=== PATIENT | male | born 1950 | race Hispanic/Latino ===

== ENCOUNTER 2019-01-21 13:55 | Inpatient (IN) | payer MEDICARE ==
[2019-01-21] MEDS ORDERED: Dextrose 50% Abboject 50 ML SYRINGE IVP PRN (18:45)
[2019-01-21] MEDS ORDERED: HumaLOG 300 UNITS/3 ML VIAL SC PRN ×2 (18:45)
[2019-01-21] MEDS ORDERED: Dextrose 5% in Water 1,000 ML IV PRN (18:45)
[2019-01-21] MEDS ORDERED: Cyclobenzaprine 10 MG TAB PO PRN (18:46)
[2019-01-21] MEDS ORDERED: Enoxaparin Sodium 30 MG/0.3 ML SYRINGE SC SCH (21:00)
[2019-01-21] MEDS ORDERED: Senokot S 8.6-50 MG TAB PO SCH (21:00)
[2019-01-21] MEDS ORDERED: Gabapentin 100 MG CAP PO SCH (21:00)
[2019-01-21] MEDS ORDERED: Ascorbic Acid 500 mg Chewable Tablet PO SCH (21:00)
[2019-01-21] MEDS ORDERED: Acetaminophen 500 MG TAB PO SCH (23:59)
[2019-01-21] MEDS ORDERED: cloNIDine 0.1 MG TAB PO SCH (23:59)
[2019-01-21] MEDS ORDERED: traMADol HCl 50 MG TAB PO SCH (23:59)
[2019-01-22] MEDS ORDERED: Sodium Chloride 0.9% 20 ML ONE (02:31)
[2019-01-22] MEDS ORDERED: Ferrous Sulfate 325 MG TAB PO SCH (08:00)
[2019-01-22] MEDS ORDERED: Tamsulosin HCl 0.4 MG CAP PO SCH (09:00)
[2019-01-22] MEDS ORDERED: Polyethylene Glycol 3350 17 GM Packet PO SCH (09:00)
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
[2019-01-23] MEDS: Acetaminophen 500 MG TAB PO SCH ×3 (05:41→17:46)
[2019-01-23] MEDS: traMADol HCl 50 MG TAB PO SCH ×3 (05:42→17:47)
[2019-01-23] MEDS: cloNIDine 0.1 MG TAB PO SCH ×3 (05:42→17:46)
[2019-01-23 05:47] LABS: #Basophils 0.1 thou/uL (0.0-0.2); #Neutrophils 10.3 thou/uL (1.40-6.50); %Basophils 0.5 % (0.0-1.0); %Eosinophils 0.4 % (0.0-10.0); %Monocytes 8.2 % (0.0-10.0); %Neutrophils 82.8 % (42.0-75.0); Hemoglobin 8.3 g/dL (14.0-18.0); Mean Corpuscular HGB CONC 31.7 g/dL (32.0-36.0); Mean Corpuscular Hemoglobin 29.1 pg (27.0-31.0); Mean Corpuscular Volume 91.6 fL (78.0-98.0); Mean Platelet Volume 5.6 fL (7.4-10.4); Platelet Count 523 thou/uL (130-400); RBC Distribution Width 13.8 % (11.5-14.5); Red Blood Cell (RBC) Count 2.84 mill/uL (4.70-6.10); White Blood Cell (WBC) Count 12.4 thou/uL (4.8-10.8)
[2019-01-23 06:00] LABS: Anion Gap 16 mmol/L (10-20); BUN (Urea Nitrogen) 16 mg/dL (8.4-25.7); Calc. Creatinine Clearance 78 mL/min (70-130); Carbon Dioxide 22 mmol/L (23-31); Chloride 101 mmol/L (98-107); Estimated GFR-MDRD 63; Glucose 163 mg/dL (80-115); Potassium 4.2 mmol/L (3.5-5.1); Sodium 135 mmol/L (136-145)
[2019-01-23] MEDS: Enoxaparin Sodium 30 MG/0.3 ML SYRINGE SC SCH ×2 (08:10→20:56)
[2019-01-23] MEDS: Gabapentin 100 MG CAP PO SCH ×3 (08:11→20:57)
[2019-01-23] MEDS: Senokot S 8.6-50 MG TAB PO SCH ×2 (08:11→20:57)
[2019-01-23] MEDS: Ferrous Sulfate 325 MG TAB PO SCH ×2 (08:11→16:47)
[2019-01-23] MEDS: Ascorbic Acid 500 mg Chewable Tablet PO SCH ×2 (08:12→20:57)
[2019-01-23] MEDS: Tamsulosin HCl 0.4 MG CAP PO SCH (08:12)
[2019-01-23] MEDS: Prevnar 13-Val Conj/PF 0.5 ML SYRINGE IM ONE (19:26)
[2019-01-23] MEDS: Cyclobenzaprine 10 MG TAB PO PRN (20:57)
[2019-01-24] MEDS: cloNIDine 0.1 MG TAB PO SCH ×4 (00:57→17:55)
[2019-01-24] MEDS: Acetaminophen 500 MG TAB PO SCH ×4 (00:57→17:55)
[2019-01-24] MEDS: traMADol HCl 50 MG TAB PO SCH ×4 (00:57→17:55)
[2019-01-24] MEDS: Enoxaparin Sodium 30 MG/0.3 ML SYRINGE SC SCH ×2 (08:44→20:25)
[2019-01-24] MEDS: Tamsulosin HCl 0.4 MG CAP PO SCH (08:45)
[2019-01-24] MEDS: Ferrous Sulfate 325 MG TAB PO SCH ×2 (08:45→17:54)
[2019-01-24] MEDS: Gabapentin 100 MG CAP PO SCH ×3 (08:45→20:25)
[2019-01-24] MEDS: Ascorbic Acid 500 mg Chewable Tablet PO SCH ×2 (08:45→20:25)
[2019-01-24] MEDS: Senokot S 8.6-50 MG TAB PO SCH ×2 (08:45→20:25)
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
[2019-01-24] MEDS: metFORMIN 500 MG TAB PO SCH (17:55)
[2019-01-24] MEDS: Lisinopril 5 MG TAB PO SCH (20:25)
[2019-01-25] MEDS: Acetaminophen 500 MG TAB PO SCH ×4 (01:04→18:00)
[2019-01-25] MEDS: cloNIDine 0.1 MG TAB PO SCH ×4 (01:04→18:01)
[2019-01-25] MEDS: traMADol HCl 50 MG TAB PO SCH ×4 (01:05→18:01)
[2019-01-25] MEDS: Tamsulosin HCl 0.4 MG CAP PO SCH (08:31)
[2019-01-25] MEDS: Ascorbic Acid 500 mg Chewable Tablet PO SCH ×2 (08:31→20:40)
[2019-01-25] MEDS: metFORMIN 500 MG TAB PO SCH ×2 (08:31→18:00)
[2019-01-25] MEDS: Ferrous Sulfate 325 MG TAB PO SCH ×2 (08:31→18:01)
[2019-01-25] MEDS: Lisinopril 5 MG TAB PO SCH ×2 (08:32→20:40)
[2019-01-25] MEDS: Gabapentin 100 MG CAP PO SCH ×3 (08:33→20:40)
[2019-01-25] MEDS: Enoxaparin Sodium 30 MG/0.3 ML SYRINGE SC SCH ×2 (08:33→20:40)
[2019-01-25] MEDS: Senokot S 8.6-50 MG TAB PO SCH ×2 (10:51→20:39)
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
[2019-01-25 20:19] LABS: Anion Gap 14 mmol/L (10-20); Calcium 8.5 mg/dL (7.8-10.44); Carbon Dioxide 23 mmol/L (23-31); Chloride 100 mmol/L (98-107); Glucose 199 mg/dL (80-115); Potassium 4.3 mmol/L (3.5-5.1); Sodium 133 mmol/L (136-145)
[2019-01-25] MEDS: Cyclobenzaprine 10 MG TAB PO PRN (20:39)
[2019-01-25 20:42] LABS: BUN (Urea Nitrogen) 29 mg/dL (8.4-25.7); Calc. Creatinine Clearance 53 mL/min (70-130); Estimated GFR-MDRD 40
[2019-01-26] MEDS: Acetaminophen 500 MG TAB PO SCH ×4 (01:13→17:57)
[2019-01-26] MEDS: traMADol HCl 50 MG TAB PO SCH ×4 (01:14→17:56)
[2019-01-26] MEDS: cloNIDine 0.1 MG TAB PO SCH ×5 (01:15→17:57)
[2019-01-26 05:39] LABS: #Basophils 0.1 thou/uL (0.0-0.2); #Eosinphils 0.2 thou/uL (0.0-0.7); #Lymphocytes 1.1 thou/uL (1.20-3.40); #Monocytes 0.7 thou/uL (0.11-0.59); #Neutrophils 4.6 thou/uL (1.40-6.50); %Eosinophils 2.7 % (0.0-10.0); %Lymphocytes 16.6 % (21.0-51.0); %Monocytes 10.7 % (0.0-10.0); Hemoglobin 8.1 g/dL (14.0-18.0); Mean Corpuscular HGB CONC 31.8 g/dL (32.0-36.0); Mean Corpuscular Hemoglobin 29.7 pg (27.0-31.0); Mean Corpuscular Volume 93.4 fL (78.0-98.0); Mean Platelet Volume 5.7 fL (7.4-10.4); Platelet Count 391 thou/uL (130-400); RBC Distribution Width 14.1 % (11.5-14.5); Red Blood Cell (RBC) Count 2.73 mill/uL (4.70-6.10); White Blood Cell (WBC) Count 6.7 thou/uL (4.8-10.8)
[2019-01-26] MEDS: Ferrous Sulfate 325 MG TAB PO SCH ×2 (08:56→16:27)
[2019-01-26] MEDS: Ascorbic Acid 500 mg Chewable Tablet PO SCH ×2 (08:57→20:20)
[2019-01-26] MEDS: Gabapentin 100 MG CAP PO SCH ×3 (08:57→20:20)
[2019-01-26] MEDS: metFORMIN 500 MG TAB PO SCH ×2 (08:57→16:27)
[2019-01-26] MEDS: Enoxaparin Sodium 30 MG/0.3 ML SYRINGE SC SCH ×2 (08:57→20:20)
[2019-01-26] MEDS: Senokot S 8.6-50 MG TAB PO SCH ×2 (08:58→20:20)
[2019-01-26] MEDS: Lisinopril 5 MG TAB PO SCH ×2 (08:58→20:20)
[2019-01-26] MEDS: Tamsulosin HCl 0.4 MG CAP PO SCH (08:58)
[2019-01-26] MEDS: Cyclobenzaprine 10 MG TAB PO PRN (11:49)
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
[2019-01-26] MEDS: Glimepiride 2 MG TAB PO SCH (16:27)
[2019-01-26] MEDS ORDERED: Glimepiride 2 MG TAB PO SCH (21:00)
[2019-01-27] MEDS: traMADol HCl 50 MG TAB PO SCH ×4 (00:15→17:43)
[2019-01-27] MEDS: Acetaminophen 500 MG TAB PO SCH ×4 (00:16→17:40)
[2019-01-27] MEDS: cloNIDine 0.1 MG TAB PO SCH ×4 (00:16→17:40)
[2019-01-27] MEDS: Glimepiride 2 MG TAB PO SCH ×2 (08:32→17:40)
[2019-01-27] MEDS: Ferrous Sulfate 325 MG TAB PO SCH ×2 (08:32→17:40)
[2019-01-27] MEDS: metFORMIN 500 MG TAB PO SCH ×2 (08:33→17:40)
[2019-01-27] MEDS: Enoxaparin Sodium 30 MG/0.3 ML SYRINGE SC SCH (08:33)
[2019-01-27] MEDS: Ascorbic Acid 500 mg Chewable Tablet PO SCH ×2 (08:33→20:39)
[2019-01-27] MEDS: Gabapentin 100 MG CAP PO SCH ×3 (08:34→20:39)
[2019-01-27] MEDS: Senokot S 8.6-50 MG TAB PO SCH ×2 (08:34→20:38)
[2019-01-27] MEDS: Tamsulosin HCl 0.4 MG CAP PO SCH (08:34)
[2019-01-27] MEDS: Lisinopril 5 MG TAB PO SCH ×2 (08:35→20:39)
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
[2019-01-27] MEDS: Cyclobenzaprine 10 MG TAB PO PRN (20:39)
[2019-01-28] MEDS: Acetaminophen 500 MG TAB PO SCH ×4 (00:30→18:06)
[2019-01-28] MEDS: traMADol HCl 50 MG TAB PO SCH ×4 (00:30→18:07)
[2019-01-28] MEDS: cloNIDine 0.1 MG TAB PO SCH ×4 (00:30→18:07)
[2019-01-28] MEDS: Glimepiride 2 MG TAB PO SCH ×2 (08:40→18:06)
[2019-01-28] MEDS: Ferrous Sulfate 325 MG TAB PO SCH ×2 (08:41→18:06)
[2019-01-28] MEDS: Ascorbic Acid 500 mg Chewable Tablet PO SCH ×2 (08:41→20:05)
[2019-01-28] MEDS: Gabapentin 100 MG CAP PO SCH ×3 (08:42→20:05)
[2019-01-28] MEDS: Senokot S 8.6-50 MG TAB PO SCH ×2 (08:42→20:05)
[2019-01-28] MEDS: Lisinopril 5 MG TAB PO SCH ×2 (08:42→20:05)
[2019-01-28] MEDS: Enoxaparin Sodium 40 MG/0.4 ML SYRINGE SC SCH (08:43)
[2019-01-28] MEDS: metFORMIN 500 MG TAB PO SCH ×2 (08:43→18:12)
[2019-01-28] MEDS: Tamsulosin HCl 0.4 MG CAP PO SCH (08:56)
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
--- NOTE | 2019-01-28 13:55 | RAD ---
XR Foot Lt 3 View STANDARD History: Foot pain Comparison: None. Findings: Extensive soft tissue swelling and mild vascular calcifications. Appears be a ulcer project ing over the distal phalanx great toe. Mild vascular calcifications. No acute fracture or malalignment. Lisfranc interval is maintained. Moderate midfoot degenerative changes. Large plantar calcaneal spur. Impression: Chronic findings. No acute osseous abnormality.
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
[2019-01-29] MEDS: traMADol HCl 50 MG TAB PO SCH ×4 (00:18→17:14)
[2019-01-29] MEDS: Acetaminophen 500 MG TAB PO SCH ×4 (00:19→17:14)
[2019-01-29] MEDS: cloNIDine 0.1 MG TAB PO SCH ×4 (05:22→17:16)
[2019-01-29 05:34] LABS: #Basophils 0.1 thou/uL (0.0-0.2); #Eosinphils 0.1 thou/uL (0.0-0.7); #Lymphocytes 1.5 thou/uL (1.20-3.40); #Neutrophils 6.7 thou/uL (1.40-6.50); %Basophils 0.5 % (0.0-1.0); %Eosinophils 0.9 % (0.0-10.0); %Lymphocytes 16.3 % (21.0-51.0); %Monocytes 10.5 % (0.0-10.0); %Neutrophils 71.8 % (42.0-75.0); Hemoglobin 8.1 g/dL (14.0-18.0); Mean Corpuscular HGB CONC 32.4 g/dL (32.0-36.0); Mean Corpuscular Hemoglobin 29.3 pg (27.0-31.0); Mean Corpuscular Volume 90.5 fL (78.0-98.0); Mean Platelet Volume 5.8 fL (7.4-10.4); Platelet Count 434 thou/uL (130-400); RBC Distribution Width 13.5 % (11.5-14.5); Red Blood Cell (RBC) Count 2.77 mill/uL (4.70-6.10); White Blood Cell (WBC) Count 9.3 thou/uL (4.8-10.8)
[2019-01-29 05:46] LABS: Anion Gap 14 mmol/L (10-20); BUN (Urea Nitrogen) 26 mg/dL (8.4-25.7); Calc. Creatinine Clearance 77 mL/min (70-130); Calcium 8.9 mg/dL (7.8-10.44); Carbon Dioxide 23 mmol/L (23-31); Chloride 101 mmol/L (98-107); Estimated GFR-MDRD 62; Potassium 4.4 mmol/L (3.5-5.1); Sodium 134 mmol/L (136-145)
[2019-01-29 05:48] LABS: Glucose 35 mg/dL (80-115)
[2019-01-29] MEDS ORDERED: Dextrose 5% in Water 1,000 ML IV PRN (06:29)
[2019-01-29] MEDS ORDERED: Dextrose 50% Abboject 50 ML SYRINGE IVP PRN (06:29)
[2019-01-29] MEDS: Gabapentin 100 MG CAP PO SCH ×3 (09:21→21:17)
[2019-01-29] MEDS: Lisinopril 5 MG TAB PO SCH ×2 (09:21→21:17)
[2019-01-29] MEDS: Senokot S 8.6-50 MG TAB PO SCH ×2 (09:21→21:17)
[2019-01-29] MEDS: Ferrous Sulfate 325 MG TAB PO SCH ×2 (09:21→17:14)
[2019-01-29] MEDS: metFORMIN 500 MG TAB PO SCH ×2 (09:21→17:15)
[2019-01-29] MEDS: Tamsulosin HCl 0.4 MG CAP PO SCH (09:21)
[2019-01-29] MEDS: Ascorbic Acid 500 mg Chewable Tablet PO SCH ×2 (09:22→21:17)
[2019-01-29] MEDS: Enoxaparin Sodium 40 MG/0.4 ML SYRINGE SC SCH (09:23)
[2019-01-30] MEDS: Acetaminophen 500 MG TAB PO SCH ×4 (00:18→17:57)
[2019-01-30] MEDS: traMADol HCl 50 MG TAB PO SCH ×4 (00:18→17:57)
[2019-01-30] MEDS: cloNIDine 0.1 MG TAB PO SCH ×4 (00:18→17:57)
[2019-01-30] MEDS: Enoxaparin Sodium 40 MG/0.4 ML SYRINGE SC SCH (08:35)
[2019-01-30] MEDS: metFORMIN 500 MG TAB PO SCH ×2 (08:36→15:50)
[2019-01-30] MEDS: Tamsulosin HCl 0.4 MG CAP PO SCH (08:36)
[2019-01-30] MEDS: Ascorbic Acid 500 mg Chewable Tablet PO SCH ×2 (08:36→21:10)
[2019-01-30] MEDS: Senokot S 8.6-50 MG TAB PO SCH ×2 (08:36→21:10)
[2019-01-30] MEDS: Ferrous Sulfate 325 MG TAB PO SCH ×2 (08:36→15:49)
[2019-01-30] MEDS: Lisinopril 5 MG TAB PO SCH ×2 (08:37→21:09)
[2019-01-30] MEDS: Gabapentin 100 MG CAP PO SCH ×3 (08:37→21:09)
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
[2019-01-30] MEDS: Citalopram 10 MG TAB PO SCH (21:09)
[2019-01-31] MEDS: Acetaminophen 500 MG TAB PO SCH ×4 (00:24→16:42)
[2019-01-31] MEDS: traMADol HCl 50 MG TAB PO SCH ×4 (00:25→16:42)
[2019-01-31] MEDS: cloNIDine 0.1 MG TAB PO SCH ×4 (00:25→16:44)
[2019-01-31] MEDS: Senokot S 8.6-50 MG TAB PO SCH ×2 (08:38→20:42)
[2019-01-31] MEDS: Ferrous Sulfate 325 MG TAB PO SCH ×2 (08:39→16:41)
[2019-01-31] MEDS: metFORMIN 500 MG TAB PO SCH ×2 (08:39→16:41)
[2019-01-31] MEDS: Tamsulosin HCl 0.4 MG CAP PO SCH (08:39)
[2019-01-31] MEDS: Gabapentin 100 MG CAP PO SCH ×3 (08:39→20:42)
[2019-01-31] MEDS: Ascorbic Acid 500 mg Chewable Tablet PO SCH ×2 (08:39→20:42)
[2019-01-31] MEDS: Enoxaparin Sodium 40 MG/0.4 ML SYRINGE SC SCH (08:39)
[2019-01-31] MEDS: Lisinopril 5 MG TAB PO SCH ×2 (08:40→20:42)
[2019-01-31] MEDS: Citalopram 10 MG TAB PO SCH (20:42)
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
[2019-02-01] MEDS: cloNIDine 0.1 MG TAB PO SCH ×4 (00:48→17:41)
[2019-02-01] MEDS: traMADol HCl 50 MG TAB PO SCH ×4 (00:48→17:41)
[2019-02-01] MEDS: Acetaminophen 500 MG TAB PO SCH ×4 (00:48→17:40)
[2019-02-01] MEDS: Ferrous Sulfate 325 MG TAB PO SCH ×2 (08:55→16:11)
[2019-02-01] MEDS: metFORMIN 500 MG TAB PO SCH ×2 (08:59→16:12)
[2019-02-01] MEDS: Enoxaparin Sodium 40 MG/0.4 ML SYRINGE SC SCH (09:07)
[2019-02-01] MEDS: Senokot S 8.6-50 MG TAB PO SCH ×2 (09:09→21:25)
[2019-02-01] MEDS: Tamsulosin HCl 0.4 MG CAP PO SCH (09:09)
[2019-02-01] MEDS: Gabapentin 100 MG CAP PO SCH ×3 (09:10→21:24)
[2019-02-01] MEDS: Lisinopril 5 MG TAB PO SCH ×2 (09:10→21:25)
[2019-02-01] MEDS: Ascorbic Acid 500 mg Chewable Tablet PO SCH ×2 (09:55→21:24)
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
[2019-02-01] MEDS: Citalopram 10 MG TAB PO SCH (21:24)
[2019-02-01] MEDS: Cyclobenzaprine 10 MG TAB PO PRN (21:24)
[2019-02-02] MEDS: cloNIDine 0.1 MG TAB PO SCH ×4 (00:45→17:51)
[2019-02-02] MEDS: Acetaminophen 500 MG TAB PO SCH ×4 (00:45→17:48)
[2019-02-02] MEDS: traMADol HCl 50 MG TAB PO SCH ×4 (00:45→17:49)
[2019-02-02] MEDS: metFORMIN 500 MG TAB PO SCH ×2 (08:40→17:48)
[2019-02-02] MEDS: Ferrous Sulfate 325 MG TAB PO SCH ×2 (08:55→17:49)
[2019-02-02] MEDS: Senokot S 8.6-50 MG TAB PO SCH ×2 (09:00→20:36)
[2019-02-02] MEDS: Cyclobenzaprine 10 MG TAB PO PRN (09:22)
[2019-02-02] MEDS: Enoxaparin Sodium 40 MG/0.4 ML SYRINGE SC SCH (09:23)
[2019-02-02] MEDS: Tamsulosin HCl 0.4 MG CAP PO SCH (09:24)
[2019-02-02] MEDS: Gabapentin 100 MG CAP PO SCH ×3 (09:24→20:35)
[2019-02-02] MEDS: Lisinopril 5 MG TAB PO SCH ×2 (09:25→20:35)
[2019-02-02] MEDS: Ascorbic Acid 500 mg Chewable Tablet PO SCH ×2 (09:25→21:01)
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
[2019-02-02] MEDS: Citalopram 10 MG TAB PO SCH (20:35)
[2019-02-03] MEDS: Acetaminophen 500 MG TAB PO SCH ×4 (00:48→17:38)
[2019-02-03] MEDS: cloNIDine 0.1 MG TAB PO SCH ×4 (00:48→17:40)
[2019-02-03] MEDS: traMADol HCl 50 MG TAB PO SCH ×4 (00:49→17:37)
[2019-02-03] MEDS: Ferrous Sulfate 325 MG TAB PO SCH ×2 (08:19→17:38)
[2019-02-03] MEDS: metFORMIN 500 MG TAB PO SCH ×2 (08:19→17:38)
[2019-02-03] MEDS: Tamsulosin HCl 0.4 MG CAP PO SCH (08:19)
[2019-02-03] MEDS: Lisinopril 5 MG TAB PO SCH ×2 (08:19→20:56)
[2019-02-03] MEDS: Ascorbic Acid 500 mg Chewable Tablet PO SCH ×2 (08:19→20:56)
[2019-02-03] MEDS: Gabapentin 100 MG CAP PO SCH ×3 (08:19→20:56)
[2019-02-03] MEDS: Senokot S 8.6-50 MG TAB PO SCH ×2 (08:19→20:56)
[2019-02-03] MEDS: Enoxaparin Sodium 40 MG/0.4 ML SYRINGE SC SCH (08:20)
[2019-02-03] MEDS ORDERED: Furosemide 40 MG TAB PO SCH (12:45)
[2019-02-03] MEDS ORDERED: Potassium Chloride 20 MEQ TAB PO SCH (13:00)
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
[2019-02-03] MEDS: Citalopram 10 MG TAB PO SCH (20:56)
[2019-02-04] MEDS: traMADol HCl 50 MG TAB PO SCH ×5 (00:20→23:41)
[2019-02-04] MEDS: Acetaminophen 500 MG TAB PO SCH ×5 (00:20→23:40)
[2019-02-04] MEDS: cloNIDine 0.1 MG TAB PO SCH ×5 (00:21→23:41)
[2019-02-04 05:42] LABS: #Eosinphils 0.2 thou/uL (0.0-0.7); #Lymphocytes 1.2 thou/uL (1.20-3.40); #Monocytes 0.8 thou/uL (0.11-0.59); #Neutrophils 4.9 thou/uL (1.40-6.50); %Basophils 0.6 % (0.0-1.0); %Eosinophils 2.5 % (0.0-10.0); %Lymphocytes 16.9 % (21.0-51.0); %Monocytes 11.2 % (0.0-10.0); %Neutrophils 68.9 % (42.0-75.0); Hemoglobin 8.1 g/dL (14.0-18.0); Mean Corpuscular Hemoglobin 28.3 pg (27.0-31.0); Mean Corpuscular Volume 88.5 fL (78.0-98.0); Mean Platelet Volume 5.8 fL (7.4-10.4); Platelet Count 449 thou/uL (130-400); RBC Distribution Width 12.5 % (11.5-14.5); Red Blood Cell (RBC) Count 2.86 mill/uL (4.70-6.10); White Blood Cell (WBC) Count 7.1 thou/uL (4.8-10.8)
[2019-02-04 05:59] LABS: Anion Gap 13 mmol/L (10-20); BUN (Urea Nitrogen) 26 mg/dL (8.4-25.7); Calc. Creatinine Clearance 71 mL/min (70-130); Calcium 9.4 mg/dL (7.8-10.44); Carbon Dioxide 24 mmol/L (23-31); Chloride 99 mmol/L (98-107); Estimated GFR-MDRD 57; Glucose 188 mg/dL (80-115); Potassium 4.6 mmol/L (3.5-5.1); Sodium 131 mmol/L (136-145)
[2019-02-04] MEDS: Enoxaparin Sodium 40 MG/0.4 ML SYRINGE SC SCH (08:11)
[2019-02-04] MEDS: Ferrous Sulfate 325 MG TAB PO SCH ×2 (08:12→17:02)
[2019-02-04] MEDS: Tamsulosin HCl 0.4 MG CAP PO SCH (08:12)
[2019-02-04] MEDS: Gabapentin 100 MG CAP PO SCH ×3 (08:12→21:31)
[2019-02-04] MEDS: Lisinopril 5 MG TAB PO SCH ×2 (08:12→21:31)
[2019-02-04] MEDS: metFORMIN 500 MG TAB PO SCH ×2 (08:12→17:02)
[2019-02-04] MEDS: Ascorbic Acid 500 mg Chewable Tablet PO SCH ×2 (08:12→21:31)
[2019-02-04] MEDS: Senokot S 8.6-50 MG TAB PO SCH ×2 (08:12→21:31)
[2019-02-04] MEDS: Cyclobenzaprine 10 MG TAB PO PRN (11:30)
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
[2019-02-04] MEDS: Citalopram 10 MG TAB PO SCH (21:31)
[2019-02-05] MEDS: traMADol HCl 50 MG TAB PO SCH ×4 (05:06→23:02)
[2019-02-05] MEDS: Acetaminophen 500 MG TAB PO SCH ×4 (05:06→23:03)
[2019-02-05] MEDS: cloNIDine 0.1 MG TAB PO SCH ×4 (05:07→23:03)
[2019-02-05] MEDS: Prevnar 13-Val Conj/PF 0.5 ML SYRINGE IM ONE (05:39)
[2019-02-05] MEDS: Tamsulosin HCl 0.4 MG CAP PO SCH (08:37)
[2019-02-05] MEDS: metFORMIN 500 MG TAB PO SCH ×2 (08:37→17:41)
[2019-02-05] MEDS: Gabapentin 100 MG CAP PO SCH ×3 (08:37→20:15)
[2019-02-05] MEDS: Ferrous Sulfate 325 MG TAB PO SCH ×2 (08:37→17:36)
[2019-02-05] MEDS: Ascorbic Acid 500 mg Chewable Tablet PO SCH ×2 (08:37→20:16)
[2019-02-05] MEDS: Senokot S 8.6-50 MG TAB PO SCH ×2 (08:37→20:15)
[2019-02-05] MEDS: Lisinopril 5 MG TAB PO SCH ×2 (08:38→20:16)
[2019-02-05] MEDS: Enoxaparin Sodium 40 MG/0.4 ML SYRINGE SC SCH (08:38)
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
[2019-02-05] MEDS: Citalopram 10 MG TAB PO SCH (20:16)
[2019-02-06] MEDS: traMADol HCl 50 MG TAB PO SCH ×4 (05:32→23:32)
[2019-02-06] MEDS: Acetaminophen 500 MG TAB PO SCH ×4 (05:32→23:32)
[2019-02-06] MEDS: cloNIDine 0.1 MG TAB PO SCH ×4 (05:32→23:32)
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
[2019-02-06] MEDS: Ascorbic Acid 500 mg Chewable Tablet PO SCH ×2 (09:39→20:33)
[2019-02-06] MEDS: Ferrous Sulfate 325 MG TAB PO SCH ×2 (09:39→17:42)
[2019-02-06] MEDS: Tamsulosin HCl 0.4 MG CAP PO SCH (09:40)
[2019-02-06] MEDS: Gabapentin 100 MG CAP PO SCH ×3 (09:40→20:33)
[2019-02-06] MEDS: Senokot S 8.6-50 MG TAB PO SCH ×2 (09:40→20:33)
[2019-02-06] MEDS: metFORMIN 500 MG TAB PO SCH ×2 (09:40→17:42)
[2019-02-06] MEDS: Enoxaparin Sodium 40 MG/0.4 ML SYRINGE SC SCH (09:41)
[2019-02-06] MEDS: Lisinopril 5 MG TAB PO SCH ×2 (09:41→20:33)
[2019-02-06] MEDS ORDERED: Gabapentin 100 MG CAP PO SCH (10:00)
[2019-02-06] MEDS: Citalopram 10 MG TAB PO SCH (20:34)
[2019-02-07] MEDS: Acetaminophen 500 MG TAB PO SCH ×4 (05:25→23:44)
[2019-02-07] MEDS: traMADol HCl 50 MG TAB PO SCH ×4 (05:25→23:44)
[2019-02-07] MEDS: cloNIDine 0.1 MG TAB PO SCH ×4 (05:26→23:45)
[2019-02-07] MEDS: Enoxaparin Sodium 40 MG/0.4 ML SYRINGE SC SCH (09:18)
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
[2019-02-07] MEDS: metFORMIN 500 MG TAB PO SCH ×2 (09:19→17:14)
[2019-02-07] MEDS: Ferrous Sulfate 325 MG TAB PO SCH ×2 (09:19→17:15)
[2019-02-07] MEDS: Lisinopril 5 MG TAB PO SCH ×2 (09:20→20:04)
[2019-02-07] MEDS: Ascorbic Acid 500 mg Chewable Tablet PO SCH ×2 (09:20→20:03)
[2019-02-07] MEDS: Senokot S 8.6-50 MG TAB PO SCH ×2 (09:20→20:05)
[2019-02-07] MEDS: Gabapentin 100 MG CAP PO SCH ×3 (09:21→20:04)
[2019-02-07] MEDS: Tamsulosin HCl 0.4 MG CAP PO SCH (09:21)
[2019-02-07] MEDS: Pioglitazone HCl 15 MG TAB PO SCH (09:21)
[2019-02-07] MEDS: Insulin Regular 300 UNITS/3 ML VIAL SC PRN ×3 (13:45→21:14)
[2019-02-07] MEDS: Citalopram 10 MG TAB PO SCH (20:04)
[2019-02-08] MEDS: Insulin Regular 300 UNITS/3 ML VIAL SC PRN ×4 (06:07→21:27)
[2019-02-08] MEDS: traMADol HCl 50 MG TAB PO SCH ×4 (06:15→23:18)
[2019-02-08] MEDS: cloNIDine 0.1 MG TAB PO SCH ×4 (06:16→23:18)
[2019-02-08] MEDS: Acetaminophen 500 MG TAB PO SCH ×4 (06:16→23:18)
[2019-02-08] MEDS: Ascorbic Acid 500 mg Chewable Tablet PO SCH ×2 (08:21→20:15)
[2019-02-08] MEDS: Ferrous Sulfate 325 MG TAB PO SCH ×2 (08:21→17:31)
[2019-02-08] MEDS: metFORMIN 500 MG TAB PO SCH ×2 (08:21→17:31)
[2019-02-08] MEDS: Senokot S 8.6-50 MG TAB PO SCH ×2 (08:24→20:17)
[2019-02-08] MEDS: Tamsulosin HCl 0.4 MG CAP PO SCH (08:26)
[2019-02-08] MEDS: Pioglitazone HCl 15 MG TAB PO SCH (08:26)
[2019-02-08] MEDS: Lisinopril 5 MG TAB PO SCH ×2 (08:26→20:16)
[2019-02-08] MEDS: Gabapentin 100 MG CAP PO SCH ×3 (08:27→20:16)
[2019-02-08] MEDS: Enoxaparin Sodium 40 MG/0.4 ML SYRINGE SC SCH (08:27)
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
[2019-02-08] MEDS: Citalopram 10 MG TAB PO SCH (20:15)
[2019-02-09] MEDS: Acetaminophen 500 MG TAB PO SCH ×4 (05:27→23:45)
[2019-02-09] MEDS: traMADol HCl 50 MG TAB PO SCH ×4 (05:27→23:45)
[2019-02-09] MEDS: cloNIDine 0.1 MG TAB PO SCH ×4 (05:28→23:46)
[2019-02-09] MEDS: metFORMIN 500 MG TAB PO SCH ×2 (08:49→17:41)
[2019-02-09] MEDS: Gabapentin 100 MG CAP PO SCH ×3 (08:49→20:37)
[2019-02-09] MEDS: Pioglitazone HCl 15 MG TAB PO SCH (08:50)
[2019-02-09] MEDS: Senokot S 8.6-50 MG TAB PO SCH ×2 (08:50→20:38)
[2019-02-09] MEDS: Ferrous Sulfate 325 MG TAB PO SCH ×2 (08:51→17:41)
[2019-02-09] MEDS: Tamsulosin HCl 0.4 MG CAP PO SCH (08:51)
[2019-02-09] MEDS: Lisinopril 5 MG TAB PO SCH ×2 (08:51→20:37)
[2019-02-09] MEDS: Ascorbic Acid 500 mg Chewable Tablet PO SCH ×2 (08:51→20:36)
[2019-02-09] MEDS: Enoxaparin Sodium 40 MG/0.4 ML SYRINGE SC SCH (08:52)
[2019-02-09] MEDS: Cyclobenzaprine 10 MG TAB PO PRN (09:37)
[2019-02-09] MEDS: Insulin Regular 300 UNITS/3 ML VIAL SC PRN ×3 (12:39→22:06)
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
[2019-02-09] MEDS: Citalopram 10 MG TAB PO SCH (20:36)
[2019-02-10] MEDS: traMADol HCl 50 MG TAB PO SCH ×3 (05:12→17:44)
[2019-02-10] MEDS: cloNIDine 0.1 MG TAB PO SCH ×3 (05:12→17:45)
[2019-02-10] MEDS: Acetaminophen 500 MG TAB PO SCH ×3 (05:12→17:43)
[2019-02-10] MEDS: Insulin Regular 300 UNITS/3 ML VIAL SC PRN ×3 (05:46→17:43)
[2019-02-10] MEDS: Gabapentin 100 MG CAP PO SCH ×3 (08:59→21:14)
[2019-02-10] MEDS: Tamsulosin HCl 0.4 MG CAP PO SCH (08:59)
[2019-02-10] MEDS: metFORMIN 500 MG TAB PO SCH ×2 (09:00→17:42)
[2019-02-10] MEDS: Senokot S 8.6-50 MG TAB PO SCH ×2 (09:00→21:15)
[2019-02-10] MEDS: Ascorbic Acid 500 mg Chewable Tablet PO SCH ×2 (09:00→21:15)
[2019-02-10] MEDS: Pioglitazone HCl 15 MG TAB PO SCH (09:01)
[2019-02-10] MEDS: Ferrous Sulfate 325 MG TAB PO SCH ×2 (09:01→17:43)
[2019-02-10] MEDS: Lisinopril 5 MG TAB PO SCH ×2 (09:01→21:15)
[2019-02-10] MEDS: Enoxaparin Sodium 40 MG/0.4 ML SYRINGE SC SCH (09:04)
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
[2019-02-10] MEDS: Cyclobenzaprine 10 MG TAB PO PRN (21:14)
[2019-02-10] MEDS: Citalopram 10 MG TAB PO SCH (21:15)
[2019-02-11] MEDS: Acetaminophen 500 MG TAB PO SCH ×4 (00:49→17:15)
[2019-02-11] MEDS: traMADol HCl 50 MG TAB PO SCH ×4 (00:49→17:14)
[2019-02-11] MEDS: cloNIDine 0.1 MG TAB PO SCH ×4 (00:51→17:12)
[2019-02-11 05:53] LABS: #Eosinphils 0.2 thou/uL (0.0-0.7); #Lymphocytes 1.4 thou/uL (1.20-3.40); #Monocytes 0.7 thou/uL (0.11-0.59); #Neutrophils 5.8 thou/uL (1.40-6.50); %Basophils 0.4 % (0.0-1.0); %Eosinophils 2.7 % (0.0-10.0); %Lymphocytes 17.5 % (21.0-51.0); %Monocytes 8.6 % (0.0-10.0); Mean Corpuscular HGB CONC 32.6 g/dL (32.0-36.0); Mean Corpuscular Hemoglobin 28.7 pg (27.0-31.0); Mean Corpuscular Volume 88.1 fL (78.0-98.0); Mean Platelet Volume 5.8 fL (7.4-10.4); Platelet Count 514 thou/uL (130-400); RBC Distribution Width 12.5 % (11.5-14.5); Red Blood Cell (RBC) Count 2.78 mill/uL (4.70-6.10); White Blood Cell (WBC) Count 8.1 thou/uL (4.8-10.8)
[2019-02-11 06:07] LABS: Anion Gap 14 mmol/L (10-20); BUN (Urea Nitrogen) 49 mg/dL (8.4-25.7); Calc. Creatinine Clearance 52 mL/min (70-130); Calcium 9.6 mg/dL (7.8-10.44); Carbon Dioxide 24 mmol/L (23-31); Chloride 101 mmol/L (98-107); Estimated GFR-MDRD 41; Glucose 179 mg/dL (80-115); Potassium 5.1 mmol/L (3.5-5.1); Sodium 134 mmol/L (136-145)
[2019-02-11] MEDS: Insulin Regular 300 UNITS/3 ML VIAL SC PRN ×3 (06:34→17:15)
[2019-02-11] MEDS: Ferrous Sulfate 325 MG TAB PO SCH ×2 (08:55→17:12)
[2019-02-11] MEDS: metFORMIN 500 MG TAB PO SCH ×2 (08:55→17:12)
[2019-02-11] MEDS: Gabapentin 100 MG CAP PO SCH ×3 (09:09→20:55)
[2019-02-11] MEDS: Senokot S 8.6-50 MG TAB PO SCH ×2 (09:10→20:54)
[2019-02-11] MEDS: Ascorbic Acid 500 mg Chewable Tablet PO SCH ×2 (09:11→20:55)
[2019-02-11] MEDS: Tamsulosin HCl 0.4 MG CAP PO SCH (09:11)
[2019-02-11] MEDS: Pioglitazone HCl 15 MG TAB PO SCH (09:12)
[2019-02-11] MEDS: Enoxaparin Sodium 40 MG/0.4 ML SYRINGE SC SCH (09:12)
[2019-02-11] MEDS: Lisinopril 5 MG TAB PO SCH ×2 (09:13→20:54)
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
[2019-02-11] MEDS: Hydrochlorothiazide 25 MG TAB PO SCH (14:37)
[2019-02-11] MEDS ORDERED: Hydrochlorothiazide 25 MG TAB PO SCH (14:45)
[2019-02-11] MEDS: Citalopram 10 MG TAB PO SCH (20:55)
[2019-02-12] MEDS: cloNIDine 0.1 MG TAB PO SCH ×4 (00:19→17:42)
[2019-02-12] MEDS: Acetaminophen 500 MG TAB PO SCH ×4 (00:19→17:43)
[2019-02-12] MEDS: traMADol HCl 50 MG TAB PO SCH ×4 (00:19→17:43)
[2019-02-12] MEDS: metFORMIN 500 MG TAB PO SCH ×2 (07:31→17:42)
[2019-02-12] MEDS: Ferrous Sulfate 325 MG TAB PO SCH ×2 (07:31→17:42)
[2019-02-12] MEDS: Enoxaparin Sodium 40 MG/0.4 ML SYRINGE SC SCH (07:32)
[2019-02-12] MEDS: Ascorbic Acid 500 mg Chewable Tablet PO SCH ×2 (07:32→21:03)
[2019-02-12] MEDS: Gabapentin 100 MG CAP PO SCH ×3 (07:32→21:03)
[2019-02-12] MEDS: Lisinopril 5 MG TAB PO SCH ×2 (07:33→21:03)
[2019-02-12] MEDS: Hydrochlorothiazide 25 MG TAB PO SCH ×2 (07:33)
[2019-02-12] MEDS: Pioglitazone HCl 15 MG TAB PO SCH (07:36)
[2019-02-12] MEDS: Senokot S 8.6-50 MG TAB PO SCH ×2 (07:37→21:03)
[2019-02-12] MEDS: Tamsulosin HCl 0.4 MG CAP PO SCH (07:38)
[2019-02-12] MEDS: Insulin Regular 300 UNITS/3 ML VIAL SC PRN (12:44)
[2019-02-12] MEDS: Citalopram 10 MG TAB PO SCH (21:02)
[2019-02-13] MEDS: Acetaminophen 500 MG TAB PO SCH ×4 (00:18→17:10)
[2019-02-13] MEDS: traMADol HCl 50 MG TAB PO SCH ×4 (00:19→17:11)
[2019-02-13] MEDS: cloNIDine 0.1 MG TAB PO SCH ×4 (00:20→17:15)
[2019-02-13] MEDS: Gabapentin 100 MG CAP PO SCH ×3 (08:50→20:31)
[2019-02-13] MEDS: Tamsulosin HCl 0.4 MG CAP PO SCH (08:50)
[2019-02-13] MEDS: Enoxaparin Sodium 40 MG/0.4 ML SYRINGE SC SCH (08:50)
[2019-02-13] MEDS: Senokot S 8.6-50 MG TAB PO SCH ×2 (08:51→20:32)
[2019-02-13] MEDS: Hydrochlorothiazide 25 MG TAB PO SCH ×2 (08:51)
[2019-02-13] MEDS: Ascorbic Acid 500 mg Chewable Tablet PO SCH ×2 (08:51→20:32)
[2019-02-13] MEDS: metFORMIN 500 MG TAB PO SCH ×2 (08:51→17:10)
[2019-02-13] MEDS: Lisinopril 5 MG TAB PO SCH ×2 (08:52→20:32)
[2019-02-13] MEDS: Ferrous Sulfate 325 MG TAB PO SCH ×2 (08:52→17:10)
[2019-02-13] MEDS: Pioglitazone HCl 15 MG TAB PO SCH (08:52)
[2019-02-13 12:09] LABS: #Basophils 0.1 thou/uL (0.0-0.2); #Eosinphils 0.2 thou/uL (0.0-0.7); #Lymphocytes 1.2 thou/uL (1.20-3.40); #Monocytes 0.9 thou/uL (0.11-0.59); #Neutrophils 10.1 thou/uL (1.40-6.50); %Basophils 0.5 % (0.0-1.0); %Eosinophils 1.6 % (0.0-10.0); %Lymphocytes 9.6 % (21.0-51.0); %Monocytes 6.9 % (0.0-10.0); %Neutrophils 81.4 % (42.0-75.0); Hemoglobin 8.8 g/dL (14.0-18.0); Mean Corpuscular HGB CONC 31.6 g/dL (32.0-36.0); Mean Corpuscular Hemoglobin 28.3 pg (27.0-31.0); Mean Corpuscular Volume 89.5 fL (78.0-98.0); Mean Platelet Volume 5.6 fL (7.4-10.4); Platelet Count 636 thou/uL (130-400); RBC Distribution Width 12.9 % (11.5-14.5); Red Blood Cell (RBC) Count 3.12 mill/uL (4.70-6.10); White Blood Cell (WBC) Count 12.4 thou/uL (4.8-10.8)
[2019-02-13] MEDS: Insulin Regular 300 UNITS/3 ML VIAL SC PRN ×2 (12:20→17:17)
[2019-02-13 12:25] LABS: ALT (SGPT) 11 U/L (8-55); AST (SGOT) 10 U/L (5-34); Albumin 3.5 g/dL (3.4-4.8); Alkaline Phosphatase 151 U/L (40-150); Anion Gap 17 mmol/L (10-20); BUN (Urea Nitrogen) 41 mg/dL (8.4-25.7); Bilirubin, Total 0.2 mg/dL (0.2-1.2); Calc. Creatinine Clearance 54 mL/min (70-130); Calcium 9.9 mg/dL (7.8-10.44); Carbon Dioxide 23 mmol/L (23-31); Chloride 99 mmol/L (98-107); Estimated GFR-MDRD 43; Globulin 3.4 g/dL (2.4-3.5); Glucose 259 mg/dL (80-115); Potassium 5.3 mmol/L (3.5-5.1); Protein, Total 6.9 g/dL (5.8-8.1); Sodium 134 mmol/L (136-145)
[2019-02-13] MEDS ORDERED: Pharmacy to Dose 1 EACH VANCOMYCIN IVPB PRN (14:05)
[2019-02-13] MEDS: Sodium Chloride 0.9% 1,000 ML IV SCH (14:20)
[2019-02-13] MEDS: Vancomycin HCl 1 GM in Sodium Chloride 0.9% 250 ML 250 ML IVPB SCH (14:20)
[2019-02-13] MEDS: cefTRIAXone\\ROCEPHIN 1 GM in Sodium Chloride 0.9% 100 ML IVPB SCH (14:20)
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
[2019-02-13] MEDS: Citalopram 10 MG TAB PO SCH (20:32)
[2019-02-14] MEDS: Sodium Chloride 0.9% 1,000 ML IV SCH ×3 (01:06→20:44)
[2019-02-14] MEDS: traMADol HCl 50 MG TAB PO SCH ×4 (01:07→17:08)
[2019-02-14] MEDS: Acetaminophen 500 MG TAB PO SCH ×4 (01:07→17:08)
[2019-02-14] MEDS: cloNIDine 0.1 MG TAB PO SCH ×4 (01:08→17:09)
[2019-02-14 05:56] LABS: #Eosinphils 0.2 thou/uL (0.0-0.7); #Lymphocytes 1.2 thou/uL (1.20-3.40); #Neutrophils 7.4 thou/uL (1.40-6.50); %Basophils 0.4 % (0.0-1.0); %Eosinophils 2.5 % (0.0-10.0); %Lymphocytes 11.9 % (21.0-51.0); %Monocytes 9.8 % (0.0-10.0); %Neutrophils 75.4 % (42.0-75.0); Hemoglobin 7.7 g/dL (14.0-18.0); Mean Corpuscular HGB CONC 33.1 g/dL (32.0-36.0); Mean Corpuscular Hemoglobin 28.7 pg (27.0-31.0); Mean Corpuscular Volume 86.8 fL (78.0-98.0); Mean Platelet Volume 5.9 fL (7.4-10.4); Platelet Count 572 thou/uL (130-400); RBC Distribution Width 12.3 % (11.5-14.5); Red Blood Cell (RBC) Count 2.66 mill/uL (4.70-6.10); White Blood Cell (WBC) Count 9.8 thou/uL (4.8-10.8)
[2019-02-14 06:04] LABS: Anion Gap 14 mmol/L (10-20); BUN (Urea Nitrogen) 35 mg/dL (8.4-25.7); Calc. Creatinine Clearance 65 mL/min (70-130); Calcium 9.6 mg/dL (7.8-10.44); Carbon Dioxide 24 mmol/L (23-31); Chloride 103 mmol/L (98-107); Estimated GFR-MDRD 53; Glucose 199 mg/dL (80-115); Potassium 4.6 mmol/L (3.5-5.1); Sodium 136 mmol/L (136-145)
[2019-02-14] MEDS: Senokot S 8.6-50 MG TAB PO SCH ×2 (08:51→20:45)
[2019-02-14] MEDS: Enoxaparin Sodium 40 MG/0.4 ML SYRINGE SC SCH (08:51)
[2019-02-14] MEDS: Ascorbic Acid 500 mg Chewable Tablet PO SCH ×2 (08:52→20:46)
[2019-02-14] MEDS: Pioglitazone HCl 15 MG TAB PO SCH (08:52)
[2019-02-14] MEDS: Ferrous Sulfate 325 MG TAB PO SCH ×2 (08:52→17:08)
[2019-02-14] MEDS: metFORMIN 500 MG TAB PO SCH ×2 (08:52→17:08)
[2019-02-14] MEDS: Gabapentin 100 MG CAP PO SCH ×3 (08:52→20:45)
[2019-02-14] MEDS: Lisinopril 5 MG TAB PO SCH ×2 (08:52→20:45)
[2019-02-14] MEDS: Tamsulosin HCl 0.4 MG CAP PO SCH (08:52)
[2019-02-14] MEDS: Hydrochlorothiazide 25 MG TAB PO SCH (08:52)
[2019-02-14] MEDS: cefTRIAXone\\ROCEPHIN 1 GM in Sodium Chloride 0.9% 100 ML IVPB SCH (12:42)
[2019-02-14] MEDS: Insulin Regular 300 UNITS/3 ML VIAL SC PRN ×2 (12:43→17:14)
[2019-02-14] MEDS: Vancomycin HCl 1 GM in Sodium Chloride 0.9% 250 ML 250 ML IVPB SCH (14:27)
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
[2019-02-14] MEDS: Citalopram 10 MG TAB PO SCH (20:45)
[2019-02-15] MEDS: Acetaminophen 500 MG TAB PO SCH ×4 (00:13→17:32)
[2019-02-15] MEDS: traMADol HCl 50 MG TAB PO SCH ×4 (00:13→17:32)
[2019-02-15] MEDS: cloNIDine 0.1 MG TAB PO SCH ×4 (00:14→18:04)
[2019-02-15 05:45] LABS: Anion Gap 13 mmol/L (10-20); BUN (Urea Nitrogen) 23 mg/dL (8.4-25.7); Calc. Creatinine Clearance 82 mL/min (70-130); Calcium 9.5 mg/dL (7.8-10.44); Carbon Dioxide 23 mmol/L (23-31); Chloride 104 mmol/L (98-107); Estimated GFR-MDRD 70; Glucose 194 mg/dL (80-115); Potassium 4.4 mmol/L (3.5-5.1); Sodium 136 mmol/L (136-145)
[2019-02-15] MEDS: Insulin Regular 300 UNITS/3 ML VIAL SC PRN ×3 (06:07→18:04)
[2019-02-15] MEDS: Sodium Chloride 0.9% 1,000 ML IV SCH ×3 (08:20→22:36)
[2019-02-15] MEDS: Gabapentin 100 MG CAP PO SCH ×3 (08:23→20:40)
[2019-02-15] MEDS: Senokot S 8.6-50 MG TAB PO SCH ×2 (08:24→20:40)
[2019-02-15] MEDS: Hydrochlorothiazide 25 MG TAB PO SCH (08:24)
[2019-02-15] MEDS: Lisinopril 5 MG TAB PO SCH ×2 (08:24→20:41)
[2019-02-15] MEDS: Tamsulosin HCl 0.4 MG CAP PO SCH (08:24)
[2019-02-15] MEDS: Ascorbic Acid 500 mg Chewable Tablet PO SCH ×2 (08:24→20:41)
[2019-02-15] MEDS: Pioglitazone HCl 15 MG TAB PO SCH (08:24)
[2019-02-15] MEDS: Ferrous Sulfate 325 MG TAB PO SCH ×2 (08:25→17:33)
[2019-02-15] MEDS: metFORMIN 500 MG TAB PO SCH ×2 (08:25→17:33)
[2019-02-15] MEDS: Enoxaparin Sodium 40 MG/0.4 ML SYRINGE SC SCH (08:26)
[2019-02-15 14:29] LABS: Vancomycin, Trough 8.5 ug/mL
[2019-02-15] MEDS: cefTRIAXone\\ROCEPHIN 1 GM in Sodium Chloride 0.9% 100 ML IVPB SCH (15:07)
[2019-02-15] MEDS: Vancomycin HCl 1 GM in Sodium Chloride 0.9% 250 ML 250 ML IVPB SCH ×3 (15:10→15:46)
[2019-02-15] MEDS ORDERED: Vancomycin HCl 500 MG in Sodium Chloride 0.9% 100 ML IVPB SCH (15:30)
[2019-02-15] MEDS: Citalopram 10 MG TAB PO SCH (20:39)
[2019-02-16] MEDS: Acetaminophen 500 MG TAB PO SCH ×4 (00:08→18:56)
[2019-02-16] MEDS: cloNIDine 0.1 MG TAB PO SCH ×4 (00:08→18:57)
[2019-02-16] MEDS: traMADol HCl 50 MG TAB PO SCH ×4 (00:10→18:57)
[2019-02-16] MEDS: Sodium Chloride 0.9% 1,000 ML IV SCH ×2 (08:49→21:00)
[2019-02-16] MEDS: Enoxaparin Sodium 40 MG/0.4 ML SYRINGE SC SCH (08:50)
[2019-02-16] MEDS: Ascorbic Acid 500 mg Chewable Tablet PO SCH ×2 (08:51→23:18)
[2019-02-16] MEDS: Gabapentin 100 MG CAP PO SCH ×3 (08:51→23:18)
[2019-02-16] MEDS: Senokot S 8.6-50 MG TAB PO SCH ×2 (08:51→23:18)
[2019-02-16] MEDS: Tamsulosin HCl 0.4 MG CAP PO SCH (08:51)
[2019-02-16] MEDS: metFORMIN 500 MG TAB PO SCH ×2 (08:52→18:56)
[2019-02-16] MEDS: Pioglitazone HCl 15 MG TAB PO SCH (08:52)
[2019-02-16] MEDS: Ferrous Sulfate 325 MG TAB PO SCH ×2 (08:52→18:56)
[2019-02-16] MEDS: Lisinopril 5 MG TAB PO SCH ×2 (08:52→23:18)
[2019-02-16] MEDS: Hydrochlorothiazide 25 MG TAB PO SCH (08:52)
[2019-02-16] MEDS: Insulin Regular 300 UNITS/3 ML VIAL SC PRN (12:16)
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
[2019-02-16] MEDS: Vancomycin HCl 750 MG in Sodium Chloride 0.9% 250 ML 250 ML IVPB SCH ×2 (18:56)
[2019-02-16] MEDS: cefTRIAXone\\ROCEPHIN 1 GM in Sodium Chloride 0.9% 100 ML IVPB SCH (18:56)
[2019-02-16] MEDS ORDERED: Cefepime 2 GM in Sodium Chloride 0.9% 100 ML IVPB SCH (22:30)
[2019-02-16] MEDS ORDERED: Vancomycin HCl 1 GM in Sodium Chloride 0.9% 250 ML 250 ML IVPB SCH (22:30)
[2019-02-16] MEDS: Citalopram 10 MG TAB PO SCH (23:19)
[2019-02-17] MEDS: traMADol HCl 50 MG TAB PO SCH ×5 (00:55→23:16)
[2019-02-17] MEDS: Acetaminophen 500 MG TAB PO SCH ×5 (00:55→23:15)
[2019-02-17] MEDS: cloNIDine 0.1 MG TAB PO SCH ×5 (00:55→23:15)
[2019-02-17] MEDS: Sodium Chloride 0.9% 1,000 ML IV SCH ×2 (06:17→17:12)
[2019-02-17] MEDS: Ferrous Sulfate 325 MG TAB PO SCH ×2 (08:15→16:44)
[2019-02-17] MEDS: Enoxaparin Sodium 40 MG/0.4 ML SYRINGE SC SCH (08:15)
[2019-02-17] MEDS: Lisinopril 5 MG TAB PO SCH ×2 (08:15→20:16)
[2019-02-17] MEDS: Senokot S 8.6-50 MG TAB PO SCH ×2 (08:15→20:17)
[2019-02-17] MEDS: Glimepiride 2 MG TAB PO SCH (08:15)
[2019-02-17] MEDS: Hydrochlorothiazide 25 MG TAB PO SCH (08:15)
[2019-02-17] MEDS: Gabapentin 100 MG CAP PO SCH ×2 (08:15→15:44)
[2019-02-17] MEDS: Pioglitazone HCl 15 MG TAB PO SCH (08:15)
[2019-02-17] MEDS: Tamsulosin HCl 0.4 MG CAP PO SCH (08:15)
[2019-02-17] MEDS: Ascorbic Acid 500 mg Chewable Tablet PO SCH ×2 (08:15→20:16)
[2019-02-17] MEDS: metFORMIN 500 MG TAB PO SCH ×2 (08:15→16:44)
[2019-02-17] MEDS: cefTRIAXone\\ROCEPHIN 1 GM in Sodium Chloride 0.9% 100 ML IVPB SCH (14:38)
[2019-02-17] MEDS: Vancomycin HCl 750 MG in Sodium Chloride 0.9% 250 ML 250 ML IVPB SCH ×2 (16:47)
[2019-02-17] MEDS: Insulin Regular 300 UNITS/3 ML VIAL SC PRN ×2 (16:59→21:53)
[2019-02-17] MEDS: Citalopram 10 MG TAB PO SCH (20:16)
[2019-02-17] MEDS: Gabapentin 300 MG CAP PO SCH (20:16)
[2019-02-17] MEDS ORDERED: Amoxicillin/Potassium Clav 875 MG TAB PO SCH (23:00)
[2019-02-17] MEDS ORDERED: Sulfameth/Trimethoprim DS 800-160mg TAB PO SCH (23:00)
[2019-02-18] MEDS: Sodium Chloride 0.9% 1,000 ML IV SCH ×3 (03:53→23:21)
[2019-02-18] MEDS: Acetaminophen 500 MG TAB PO SCH ×4 (05:22→23:21)
[2019-02-18] MEDS: traMADol HCl 50 MG TAB PO SCH ×4 (05:23→23:22)
[2019-02-18] MEDS: cloNIDine 0.1 MG TAB PO SCH ×4 (05:23→23:21)
[2019-02-18] MEDS: Insulin Regular 300 UNITS/3 ML VIAL SC PRN ×2 (06:04→12:36)
[2019-02-18] MEDS: Ondansetron ODT 4 MG TAB PO PRN ×2 (07:14→16:29)
[2019-02-18] MEDS: metFORMIN 500 MG TAB PO SCH ×2 (07:51→16:26)
[2019-02-18] MEDS: Glimepiride 2 MG TAB PO SCH (07:52)
[2019-02-18] MEDS: Ferrous Sulfate 325 MG TAB PO SCH ×2 (07:54→16:28)
[2019-02-18] MEDS: Amoxicillin/Potassium Clav 875 MG TAB PO SCH ×2 (09:10→21:28)
[2019-02-18] MEDS: Senokot S 8.6-50 MG TAB PO SCH ×2 (09:11→21:27)
[2019-02-18] MEDS: Tamsulosin HCl 0.4 MG CAP PO SCH (09:11)
[2019-02-18] MEDS: Ascorbic Acid 500 mg Chewable Tablet PO SCH ×2 (09:12→21:28)
[2019-02-18] MEDS: Gabapentin 300 MG CAP PO SCH ×3 (09:13→21:28)
[2019-02-18] MEDS: Pioglitazone HCl 15 MG TAB PO SCH (09:13)
[2019-02-18] MEDS: Hydrochlorothiazide 25 MG TAB PO SCH (09:15)
[2019-02-18] MEDS: Enoxaparin Sodium 40 MG/0.4 ML SYRINGE SC SCH (09:15)
[2019-02-18] MEDS: Lisinopril 5 MG TAB PO SCH ×2 (09:17→21:28)
[2019-02-18] MEDS: Sulfameth/Trimethoprim DS 800-160mg TAB PO SCH ×2 (09:17→21:28)
--- NOTE | 2019-02-18 13:13 | RAD ---
EXAM: Single view of the abdomen HISTORY: Abdominal distention and vomiting COMPARISON: None FINDINGS: Single view of the abdomen shows a nonspecific, nonobstructive bowel gas pattern. Air and s tool seen throughout the colon to the level of the rectum. No suspicious calcifications are seen. Degenerative changes and postsurgical changes are seen in the spine. IMPRESSION: Unremarkable exam
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
[2019-02-18] MEDS: Citalopram 10 MG TAB PO SCH (21:28)
[2019-02-19] MEDS: cloNIDine 0.1 MG TAB PO SCH ×4 (04:44→23:24)
[2019-02-19] MEDS: Acetaminophen 500 MG TAB PO SCH ×4 (04:45→23:23)
[2019-02-19] MEDS: traMADol HCl 50 MG TAB PO SCH ×4 (04:45→23:24)
[2019-02-19] MEDS: Ferrous Sulfate 325 MG TAB PO SCH ×2 (14:21→17:47)
[2019-02-19] MEDS: Glimepiride 2 MG TAB PO SCH (14:21)
[2019-02-19] MEDS: metFORMIN 500 MG TAB PO SCH ×2 (14:22→17:48)
[2019-02-19] MEDS: Ondansetron ODT 4 MG TAB PO PRN (14:39)
[2019-02-19] MEDS: Gabapentin 300 MG CAP PO SCH ×3 (14:40→20:49)
[2019-02-19] MEDS: Ascorbic Acid 500 mg Chewable Tablet PO SCH ×2 (14:41→20:49)
[2019-02-19] MEDS: Enoxaparin Sodium 40 MG/0.4 ML SYRINGE SC SCH (14:42)
[2019-02-19] MEDS: Hydrochlorothiazide 25 MG TAB PO SCH (14:43)
[2019-02-19] MEDS: Lisinopril 5 MG TAB PO SCH ×2 (14:44→20:49)
[2019-02-19] MEDS: Pioglitazone HCl 15 MG TAB PO SCH (14:45)
[2019-02-19] MEDS: Sulfameth/Trimethoprim DS 800-160mg TAB PO SCH ×2 (14:45→20:49)
[2019-02-19] MEDS: Senokot S 8.6-50 MG TAB PO SCH ×2 (14:45→20:49)
[2019-02-19] MEDS: Tamsulosin HCl 0.4 MG CAP PO SCH (14:46)
[2019-02-19] MEDS: Amoxicillin/Potassium Clav 875 MG TAB PO SCH (15:55)
[2019-02-19] MEDS: Sodium Chloride 0.9% 1,000 ML IV SCH ×2 (16:37→20:50)
[2019-02-19] MEDS: Insulin Regular 300 UNITS/3 ML VIAL SC PRN (20:48)
[2019-02-19] MEDS: Citalopram 10 MG TAB PO SCH (20:48)
[2019-02-20] MEDS: Acetaminophen 500 MG TAB PO SCH ×3 (05:33→17:20)
[2019-02-20] MEDS: cloNIDine 0.1 MG TAB PO SCH ×3 (05:34→17:21)
[2019-02-20] MEDS: traMADol HCl 50 MG TAB PO SCH ×3 (05:34→17:21)
[2019-02-20] MEDS: Sodium Chloride 0.9% 1,000 ML IV SCH ×2 (05:37→15:58)
[2019-02-20] MEDS: Senokot S 8.6-50 MG TAB PO SCH ×2 (08:35→20:54)
[2019-02-20] MEDS: Hydrochlorothiazide 25 MG TAB PO SCH (08:35)
[2019-02-20] MEDS: Pioglitazone HCl 15 MG TAB PO SCH (08:35)
[2019-02-20] MEDS: Tamsulosin HCl 0.4 MG CAP PO SCH (08:35)
[2019-02-20] MEDS: Ascorbic Acid 500 mg Chewable Tablet PO SCH ×2 (08:35→20:54)
[2019-02-20] MEDS: Lisinopril 5 MG TAB PO SCH ×2 (08:36→20:55)
[2019-02-20] MEDS: Gabapentin 300 MG CAP PO SCH ×3 (08:36→20:55)
[2019-02-20] MEDS: Glimepiride 2 MG TAB PO SCH (08:36)
[2019-02-20] MEDS: Sulfameth/Trimethoprim DS 800-160mg TAB PO SCH ×2 (08:36→20:55)
[2019-02-20] MEDS: Ferrous Sulfate 325 MG TAB PO SCH ×2 (08:36→17:21)
[2019-02-20] MEDS: metFORMIN 500 MG TAB PO SCH ×2 (08:38→17:21)
[2019-02-20] MEDS: Enoxaparin Sodium 40 MG/0.4 ML SYRINGE SC SCH (08:38)
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
[2019-02-20] MEDS: Citalopram 10 MG TAB PO SCH (20:55)
[2019-02-21] MEDS: Acetaminophen 500 MG TAB PO SCH ×4 (00:30→20:51)
[2019-02-21] MEDS: cloNIDine 0.1 MG TAB PO SCH ×4 (00:30→20:52)
[2019-02-21] MEDS: traMADol HCl 50 MG TAB PO SCH ×4 (00:31→20:53)
[2019-02-21] MEDS: Sodium Chloride 0.9% 1,000 ML IV SCH ×3 (00:32→21:16)
[2019-02-21 05:19] LABS: #Eosinphils 0.2 thou/uL (0.0-0.7); #Monocytes 1.1 thou/uL (0.11-0.59); #Neutrophils 7.1 thou/uL (1.40-6.50); %Basophils 0.3 % (0.0-1.0); %Eosinophils 1.8 % (0.0-10.0); %Lymphocytes 10.9 % (21.0-51.0); %Monocytes 11.8 % (0.0-10.0); %Neutrophils 75.1 % (42.0-75.0); Hemoglobin 7.5 g/dL (14.0-18.0); Mean Corpuscular HGB CONC 31.4 g/dL (32.0-36.0); Mean Corpuscular Hemoglobin 27.4 pg (27.0-31.0); Mean Corpuscular Volume 87.5 fL (78.0-98.0); Mean Platelet Volume 5.1 fL (7.4-10.4); Platelet Count 495 thou/uL (130-400); Red Blood Cell (RBC) Count 2.75 mill/uL (4.70-6.10); White Blood Cell (WBC) Count 9.4 thou/uL (4.8-10.8)
[2019-02-21 05:31] LABS: Anion Gap 13 mmol/L (10-20); BUN (Urea Nitrogen) 21 mg/dL (8.4-25.7); Calc. Creatinine Clearance 55 mL/min (70-130); Calcium 9.1 mg/dL (7.8-10.44); Carbon Dioxide 22 mmol/L (23-31); Chloride 106 mmol/L (98-107); Estimated GFR-MDRD 44; Glucose 63 mg/dL (80-115); Potassium 4.5 mmol/L (3.5-5.1); Sodium 136 mmol/L (136-145)
[2019-02-21] MEDS: Ondansetron ODT 4 MG TAB PO PRN (05:46)
[2019-02-21] MEDS: Tamsulosin HCl 0.4 MG CAP PO SCH (09:01)
[2019-02-21] MEDS: metFORMIN 500 MG TAB PO SCH ×2 (09:01→16:09)
[2019-02-21] MEDS: Sulfameth/Trimethoprim DS 800-160mg TAB PO SCH ×2 (09:01→21:15)
[2019-02-21] MEDS: Pioglitazone HCl 15 MG TAB PO SCH (09:01)
[2019-02-21] MEDS: Ascorbic Acid 500 mg Chewable Tablet PO SCH ×2 (09:01→21:15)
[2019-02-21] MEDS: Hydrochlorothiazide 25 MG TAB PO SCH (09:02)
[2019-02-21] MEDS: Glimepiride 2 MG TAB PO SCH (09:02)
[2019-02-21] MEDS: Gabapentin 300 MG CAP PO SCH ×3 (09:02→21:15)
[2019-02-21] MEDS: Senokot S 8.6-50 MG TAB PO SCH ×2 (09:02→21:14)
[2019-02-21] MEDS: Lisinopril 5 MG TAB PO SCH ×2 (09:02→21:15)
[2019-02-21] MEDS: Enoxaparin Sodium 40 MG/0.4 ML SYRINGE SC SCH (09:03)
[2019-02-21] MEDS: Ferrous Sulfate 325 MG TAB PO SCH ×2 (09:03→16:09)
[2019-02-21] MEDS ORDERED: Zolpidem Tartrate 5 MG TAB PO PRN (15:05)
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
[2019-02-21] MEDS: Cyclobenzaprine 10 MG TAB PO PRN (21:14)
[2019-02-21] MEDS: Citalopram 10 MG TAB PO SCH (21:14)
[2019-02-22] MEDS: traMADol HCl 50 MG TAB PO SCH ×2 (00:29→06:09)
[2019-02-22] MEDS: cloNIDine 0.1 MG TAB PO SCH ×5 (00:32→20:06)
[2019-02-22] MEDS: Acetaminophen 500 MG TAB PO SCH ×4 (00:32→17:10)
[2019-02-22 05:55] LABS: Anion Gap 16 mmol/L (10-20); BUN (Urea Nitrogen) 19 mg/dL (8.4-25.7); Calc. Creatinine Clearance 67 mL/min (70-130); Calcium 9.4 mg/dL (7.8-10.44); Carbon Dioxide 19 mmol/L (23-31); Chloride 105 mmol/L (98-107); Estimated GFR-MDRD 56; Potassium 4.7 mmol/L (3.5-5.1); Sodium 135 mmol/L (136-145)
[2019-02-22 06:03] LABS: Glucose 35 mg/dL (80-115)
[2019-02-22] MEDS: Ondansetron ODT 4 MG TAB PO PRN (06:09)
[2019-02-22] MEDS ORDERED: Bisacodyl 10 MG SUPP PR PRN (06:30)
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
[2019-02-22] MEDS: Hydrochlorothiazide 25 MG TAB PO SCH (10:10)
[2019-02-22] MEDS: metFORMIN 500 MG TAB PO SCH ×2 (10:10→17:11)
[2019-02-22] MEDS: Ascorbic Acid 500 mg Chewable Tablet PO SCH ×2 (10:10→22:39)
[2019-02-22] MEDS: Lisinopril 5 MG TAB PO SCH ×2 (10:10→20:07)
[2019-02-22] MEDS: Glimepiride 2 MG TAB PO SCH (10:11)
[2019-02-22] MEDS: Ferrous Sulfate 325 MG TAB PO SCH ×2 (10:11→17:10)
[2019-02-22] MEDS: Tamsulosin HCl 0.4 MG CAP PO SCH (10:11)
[2019-02-22] MEDS: Senokot S 8.6-50 MG TAB PO SCH ×2 (10:11→22:39)
[2019-02-22] MEDS: Sulfameth/Trimethoprim DS 800-160mg TAB PO SCH ×2 (10:12→22:39)
[2019-02-22] MEDS: Enoxaparin Sodium 40 MG/0.4 ML SYRINGE SC SCH (10:12)
[2019-02-22] MEDS: Gabapentin 300 MG CAP PO SCH ×3 (10:12→22:39)
[2019-02-22] MEDS: Pioglitazone HCl 15 MG TAB PO SCH (10:12)
[2019-02-22] MEDS: Sodium Chloride 0.9% 1,000 ML IV SCH (10:15)
--- NOTE | 2019-02-22 11:03 | CT ---
EXAM: CT of the chest with contrast HISTORY: Increased shortness breath and dyspnea COMPARISON: Chest x-ray 02/22/2019 TECHNIQUE: Multiple contiguous axial images were obtained in a CT the chest with contrast. Coronal an d sagittal reformats were performed. FINDINGS: HEART: Normal in size without focal cardiac abnormality MEDIASTINUM: No hilar or mediastinal lymphadenopathy. LUNGS: No focal infiltrates, nodules, or masses. PLEURAL SPACE: Large left pleural effusion with adjacent atelectasis. No pneumothorax. CHEST WALL SOFT TISSUES: Unremarkable OSSEOUS STRUCTURES: Multiple bilateral rib fractures of varying ages. Hardware and degenerative rodriguez es are seen in the spine. VISUALIZED SUBDIAPHRAGMATIC STRUCTURES: Gallstones in the gallbladder. IMPRESSION: 1. Large left pleural effusion with adjacent atelectasis 2. Multiple rib fractures of varying ages 3. Cholelithiasis
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
[2019-02-22] MEDS ORDERED: Dextrose 50% Abboject 50 ML SYRINGE SLOW IVP PRN (14:28)
[2019-02-22] MEDS ORDERED: Dextrose 50% Abboject 50 ML SYRINGE ONE (20:03)
[2019-02-22] MEDS ORDERED: Sodium Chloride 0.9% 10 ML ONE (20:09)
[2019-02-22 20:26] VITALS: TEMP 97.4
[2019-02-22] MEDS ORDERED: Sodium Chloride 0.9% 20 ML ONE (20:50)
[2019-02-22] MEDS ORDERED: cloNIDine 0.1 MG TAB PO PRN (20:58)
[2019-02-22] MEDS ORDERED: traMADol HCl 50 MG TAB PO PRN (21:01)
[2019-02-22] MEDS ORDERED: Acetaminophen 500 MG TAB PO PRN (21:02)
[2019-02-22] MEDS: Citalopram 10 MG TAB PO SCH (22:38)
[2019-02-23] MEDS ORDERED: Dextrose 10% in Water 1,000 ML IV SCH
[2019-02-23] MEDS ORDERED: Dextrose 5% in Water 1,000 ML IV SCH (01:00)
[2019-02-23] MEDS ORDERED: Dextrose 50% Abboject 50 ML SYRINGE ONE ×2 (03:59→04:00)
[2019-02-23] MEDS ORDERED: Furosemide 40 MG/4 ML VIAL ONE (04:32)
[2019-02-23 04:49] LABS: #Basophils 0.1 thou/uL (0.0-0.2); #Eosinphils 0.2 thou/uL (0.0-0.7); #Lymphocytes 3.1 thou/uL (1.20-3.40); #Monocytes 1.5 thou/uL (0.11-0.59); #Neutrophils 13.5 thou/uL (1.40-6.50); %Basophils 0.4 % (0.0-1.0); %Eosinophils 1.3 % (0.0-10.0); %Monocytes 8.1 % (0.0-10.0); %Neutrophils 73.2 % (42.0-75.0); Hemoglobin 9.7 g/dL (14.0-18.0); Mean Corpuscular HGB CONC 32.2 g/dL (32.0-36.0); Mean Corpuscular Hemoglobin 27.9 pg (27.0-31.0); Mean Corpuscular Volume 86.6 fL (78.0-98.0); Mean Platelet Volume 5.4 fL (7.4-10.4); Platelet Count 795 thou/uL (130-400); RBC Distribution Width 13.4 % (11.5-14.5); Red Blood Cell (RBC) Count 3.49 mill/uL (4.70-6.10); White Blood Cell (WBC) Count 18.5 thou/uL (4.8-10.8)
[2019-02-23] MEDS ORDERED: cloNIDine 0.2 MG TAB PO SCH (05:00)
[2019-02-23 05:06] LABS: ALT (SGPT) 11 U/L (8-55); AST (SGOT) 17 U/L (5-34); Albumin 3.7 g/dL (3.4-4.8); Alkaline Phosphatase 129 U/L (40-150); Anion Gap 17 mmol/L (10-20); BUN (Urea Nitrogen) 18 mg/dL (8.4-25.7); Bilirubin, Total 0.2 mg/dL (0.2-1.2); CK (CPK) 37 U/L (30-200); Calc. Creatinine Clearance 63 mL/min (70-130); Carbon Dioxide 20 mmol/L (23-31); Chloride 98 mmol/L (98-107); Estimated GFR-MDRD 53; Globulin 3.4 g/dL (2.4-3.5); Glucose 155 mg/dL (80-115); Potassium 4.6 mmol/L (3.5-5.1); Protein, Total 7.1 g/dL (5.8-8.1); Sodium 130 mmol/L (136-145)
[2019-02-23 05:53] VITALS: BP 203/85
--- NOTE | 2019-02-23 07:53 | RAD ---
XR Chest 1 View Portable History: Shortness of breath. Comparison: Radiograph prior day Findings: Enlarging left layering pleural effusion. There is obscuration of the left cardiac border a nd left hemidiaphragm. There are new right basilar opacities. Multiple old right rib fractures. Multiple nonunion left rib fractures. Impression: 1. Enlarging left layering pleural effusion with compressive atelectasis. 2. New opacity right lung base may reflect developing atelectasis or pneumonia. Continued follow-up r ecommended.
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
== END 2019-02-23 09:15 | disposition short-term general hospital (02) | DRG 559 ==
LOC: NAV ACUTE 13:55 → UNDODISIN 01-22 02:51
PROVIDERS: ADMIT Internal Medicine; ATTEND Internal Medicine
DX: Z47.89 Encounter for other orthopedic aftercare (principal); J96.01 Acute respiratory failure with hypoxia; E87.1 Hypo-osmolality and hyponatremia; D62 Acute posthemorrhagic anemia; J90 Pleural effusion, not elsewhere classified; J98.11 Atelectasis; E11.52 Type 2 diabetes mellitus with diabetic peripheral angiopathy with gangrene; I96 Gangrene, not elsewhere classified; T81.31XA Disruption of external operation (surgical) wound, not elsewhere classified, initial encounter; I10 Essential (primary) hypertension; N40.0 Benign prostatic hyperplasia without lower urinary tract symptoms; K29.70 Gastritis, unspecified, without bleeding; R53.81 Other malaise; F32.9 Major depressive disorder, single episode, unspecified; M77.32 Calcaneal spur, left foot; R60.0 Localized edema; E11.621 Type 2 diabetes mellitus with foot ulcer; E86.0 Dehydration; L97.529 Non-pressure chronic ulcer of other part of left foot with unspecified severity; E78.5 Hyperlipidemia, unspecified; Z79.899 Other long term (current) drug therapy; Z98.62 Peripheral vascular angioplasty status; Z86.79 Personal history of other diseases of the circulatory system; S12.600D Unspecified displaced fracture of seventh cervical vertebra, subsequent encounter for fracture with routine healing; S12.100D Unspecified displaced fracture of second cervical vertebra, subsequent encounter for fracture with routine healing; S12.200D Unspecified displaced fracture of third cervical vertebra, subsequent encounter for fracture with routine healing; S12.300D Unspecified displaced fracture of fourth cervical vertebra, subsequent encounter for fracture with routine healing; S12.500D Unspecified displaced fracture of sixth cervical vertebra, subsequent encounter for fracture with routine healing; V89.2XXD Person injured in unspecified motor-vehicle accident, traffic, subsequent encounter; S22.019D Unspecified fracture of first thoracic vertebra, subsequent encounter for fracture with routine healing; S22.079D Unspecified fracture of T9-T10 vertebra, subsequent encounter for fracture with routine healing; S22.42XD Multiple fractures of ribs, left side, subsequent encounter for fracture with routine healing; D72.829 Elevated white blood cell count, unspecified; E11.649 Type 2 diabetes mellitus with hypoglycemia without coma; R00.0 Tachycardia, unspecified; E87.5 Hyperkalemia; L03.032 Cellulitis of left toe; R11.0 Nausea; T50.905A Adverse effect of unspecified drugs, medicaments and biological substances, initial encounter
CPT/HCPCS: 36415; 36416; 71045; 71260; 74018; 80048; 80053; 80202; 82271; 82550; 82553; 84484; 85025; 87040; 87070; 87077; 87186; 87205; 90471; 90670; 97602; G0009; J0696; J1610; J1650; J1815; J1940; J3370; J3490; J7050; J7070; J7620; Q0162

== ENCOUNTER 2019-01-22 02:50 | Emergency (ER) | payer MEDICARE ==
[2019-01-22 03:12] LABS: #Basophils 0.1 thou/uL (0.0-0.2); #Eosinphils 0.1 thou/uL (0.0-0.7); #Lymphocytes 0.7 thou/uL (1.20-3.40); #Monocytes 0.8 thou/uL (0.11-0.59); #Neutrophils 14.6 thou/uL (1.40-6.50); %Basophils 0.4 % (0.0-1.0); %Eosinophils 0.9 % (0.0-10.0); %Lymphocytes 4.3 % (21.0-51.0); %Monocytes 4.6 % (0.0-10.0); %Neutrophils 89.8 % (42.0-75.0); Hemoglobin 9.8 g/dL (14.0-18.0); Mean Corpuscular Hemoglobin 29.2 pg (27.0-31.0); Mean Corpuscular Volume 88.6 fL (78.0-98.0); Mean Platelet Volume 5.8 fL (7.4-10.4); Platelet Count 568 thou/uL (130-400); RBC Distribution Width 13.2 % (11.5-14.5); Red Blood Cell (RBC) Count 3.36 mill/uL (4.70-6.10); White Blood Cell (WBC) Count 16.3 thou/uL (4.8-10.8)
[2019-01-22 03:14] LABS: PTT 41.9 SEC (22.9-36.1); Prothrombin Time 13.2 SEC (12.0-14.7)
[2019-01-22 03:17] LABS: Carbon Dioxide 24 mmol/L (23-31); Chloride 93 mmol/L (98-107); Potassium 4.3 mmol/L (3.5-5.1); Sodium 131 mmol/L (136-145)
[2019-01-22 03:18] LABS: Albumin 3.5 g/dL (3.4-4.8); Anion Gap 18 mmol/L (10-20); Calcium 9.5 mg/dL (7.8-10.44); Glucose 167 mg/dL (80-115); Protein, Total 6.5 g/dL (5.8-8.1)
[2019-01-22 03:20] LABS: Alkaline Phosphatase 240 U/L (40-150); Bilirubin, Total 0.7 mg/dL (0.2-1.2); Calc. Creatinine Clearance 0 mL/min (70-130); Estimated GFR-MDRD 57
[2019-01-22 03:21] LABS: BUN (Urea Nitrogen) 19 mg/dL (8.4-25.7)
[2019-01-22 03:22] LABS: ALT (SGPT) 44 U/L (8-55); AST (SGOT) 67 U/L (5-34)
[2019-01-22] MEDS ORDERED: Ondansetron PF 4 MG/2 ML Vial ONE (03:40)
[2019-01-22] MEDS ORDERED: Pantoprazole 40 MG VIAL ONE (03:41)
--- NOTE | 2019-01-22 07:50 | RAD ---
Portable chest 1 view 8 [birth year]1990 3:57 AM HISTORY: NG tube placement COMPARISON: 01/08/2019 FINDINGS: The NG tube is looped in the distal esophagus. Recommend repositioning of the NG tube.
--- NOTE | 2019-01-22 08:31 | RAD ---
ABDOMEN 1 VIEW: Date: 01/22/19 HISTORY: Nasogastric tube placement. FINDINGS/IMPRESSION: Exam is somewhat underpenetrated and compromised due to patient body habitus. Gas present throughout the visualized small bowel and large bowel. Mild gaseous distention of the stomach. Nasogastric tube is not visible. It was seen within the esophagus on corresponding chest radiograph. Please consider advancing the catheter. POS: FÉLIX
[2019-01-23] MEDS ORDERED: Cyclobenzaprine 10 MG TAB PO PRN (01:01)
[2019-01-23] MEDS ORDERED: Acetaminophen 500 MG TAB PO SCH (06:00)
[2019-01-23] MEDS ORDERED: cloNIDine 0.1 MG TAB PO SCH (06:00)
[2019-01-23] MEDS ORDERED: traMADol HCl 50 MG TAB PO SCH (06:00)
[2019-01-23] MEDS ORDERED: Ferrous Sulfate 325 MG TAB PO SCH (08:00)
[2019-01-23] MEDS ORDERED: Gabapentin 100 MG CAP PO SCH (09:00)
[2019-01-23] MEDS ORDERED: Ascorbic Acid 500 mg Chewable Tablet PO SCH (09:00)
[2019-01-23] MEDS ORDERED: Tamsulosin HCl 0.4 MG CAP PO SCH (09:00)
[2019-01-23] MEDS ORDERED: Senokot S 8.6-50 MG TAB PO SCH (09:00)
[2019-01-23] MEDS ORDERED: Enoxaparin Sodium 30 MG/0.3 ML SYRINGE SC SCH (09:00)
[2019-01-23] MEDS ORDERED: Ondansetron PF 4 MG/2 ML Vial IVP PRN ×2 (09:03→10:03)
[2019-01-23] MEDS ORDERED: Ondansetron ODT 4 MG TAB PO PRN (09:21)
[2019-01-27] MEDS ORDERED: Dextrose 5% in Water 1,000 ML IV PRN (16:31)
[2019-01-27] MEDS ORDERED: HumaLOG 300 UNITS/3 ML VIAL SC PRN ×2 (16:31)
[2019-01-27] MEDS ORDERED: Dextrose 50% Abboject 50 ML SYRINGE IVP PRN (16:31)
== END 2019-01-22 04:45 | disposition short-term general hospital (02) ==
LOC: NAV ERS 02:50
DX: K92.2 Gastrointestinal hemorrhage, unspecified (principal); E11.9 Type 2 diabetes mellitus without complications; I10 Essential (primary) hypertension; M19.90 Unspecified osteoarthritis, unspecified site; Z87.891 Personal history of nicotine dependence; Z79.899 Other long term (current) drug therapy
CPT/HCPCS: 71045; 74018; 82550; 84484; 85610; 85730; 96361; 96365; 96375; C9113; J2405

== ENCOUNTER 2019-02-23 05:17 | Emergency (ER) | payer MEDICARE ==
[2019-02-23] MEDS ORDERED: Morphine 4 MG/ML VIAL ONE (05:37)
[2019-02-23] MEDS ORDERED: Nitroglycerin 2% Ointment 1 INCH/1 GM Packet ONE (05:38)
[2019-02-23] MEDS ORDERED: Furosemide 40 MG/4 ML VIAL ONE (06:05)
== END 2019-02-23 06:11 | disposition short-term general hospital (02) ==
LOC: NAV ERS 05:17
DX: J96.90 Respiratory failure, unspecified, unspecified whether with hypoxia or hypercapnia (principal); J81.1 Chronic pulmonary edema; J90 Pleural effusion, not elsewhere classified; I10 Essential (primary) hypertension; R00.0 Tachycardia, unspecified; E11.9 Type 2 diabetes mellitus without complications; E78.5 Hyperlipidemia, unspecified; E78.00 Pure hypercholesterolemia, unspecified; N40.0 Benign prostatic hyperplasia without lower urinary tract symptoms
CPT/HCPCS: 51703; 94640; 94660; 94760; 96374; 96375; 96376; J1940; J2270